=== PATIENT | male | born 1965 | race Two or more races ===

== ENCOUNTER 2016-03-23 12:17 | Emergency (ER) | payer OTHER ==
[2016-03-23 12:38] VITALS: PULSE 82; TEMP 98.1; BMI 31.9
--- NOTE | 2016-03-23 13:23 | PDOC ---
[id number] 4d DIZZY Time Seen by Provider: 03/23/16 12:32 History Source: Patient, Family - History of Present Illness Initial Comments: 03/23/16 13:04 CHIEF COMPLAINT: Dizziness HISTORY OF PRESENT ILLNESS: Patient is a 50-year-old man with a history of hypertension for 8 years. He presents complaining of awakening this morning at 8 am with a sensation of things moving around and feeling dizzy. There is no change with movement or with walking. It is just a vague ongoing sensation of dizziness. He was fine when he went to bed. He awoke at 3 am and also felt fine, but the symptoms were there already upon awakening at 8 am. There is no headache, but his head feels a little heavy. He denies diplopia. He denies change in speech or swallowing. He felt nausea but had no vomiting. Currently , he continues to feel a little bit dizzy. REVIEW OF SYSTEMS: GENERAL/CONSTITUTIONAL: No fever or chills. No weakness. No weight change. HEAD, EYES, EARS, NOSE AND THROAT: No change in vision. No ear pain or discharge. No sore throat. CARDIOVASCULAR: No chest pain or shortness of breath. RESPIRATORY: No cough, wheezing, or hemoptysis. GASTROINTESTINAL: Positive nausea, no vomiting, diarrhea or constipation. No rectal bleeding. GENITOURINARY: No dysuria, frequency, or change in urination. MUSCULOSKELETAL: No joint or muscle swelling or pain. No neck or back pain. SKIN AND BREASTS: No rash or easy bruising. NEUROLOGIC: No headache, but head is feeling a bit heavy, no sarah vertigo, but does feel dizzy, no loss of consciousness, or loss of sensation. PSYCHIATRIC: No depression or anxiety. ENDOCRINE: No increased thirst. No abnormal weight change. HEMATOLOGIC/LYMPHATIC: No anemia, easy bleeding, or history of blood clots. ALLERGIC/IMMUNOLOGIC: No hives or skin allergy. No latex allergy. Past History - Past Medical History Allergies/Adverse Reactions: Allergies Allergy/AdvReac Type Severity Reaction Status Date / Time No Known Allergies Allergy Verified 03/23/16 12:20 Home Medications: Ambulatory Orders Amlodipine Besylate 10 mg PO DAILY 03/23/16 Multivits,Ca,Min/Iron/FA/Lycop [Centrum Men's Tablet] 1 each PO DAILY 03/23/16 HTN: Yes Hypercholesterolemia: Yes - Psycho/Social/Smoking Cessation Hx Anxiety: No Suicidal Ideation: No Smoking History: Never smoked Have you smoked in the past 12 months: No Information on smoking cessation initiated: No Hx Alcohol Use: No Drug/Substance Use Hx: No Substance Use Type: None *Physical Exam - Vital Signs Last Vital Signs Temp Pulse Resp BP Pulse Ox 98.1 F 82 16 137/100 98 03/23/16 12:28 03/23/16 12:28 03/23/16 12:28 03/23/16 12:28 03/23/16 12:28 - Physical Exam Comments: 03/23/16 13:24 GENERAL: [The patient is awake, alert, and fully oriented, in no acute distress. ] HEAD: [Normal with no signs of trauma.] EYES: [Pupils equal, round and reactive to light, extraocular movements intact, sclera anicteric, conjunctiva clear.] ENT: [Ears normal, nares patent, oropharynx clear without exudates. Moist mucous membranes.] NECK: [Normal range of motion, supple without lymphadenopathy, JVD, or masses.] LUNGS: [Breath sounds equal, clear to auscultation bilaterally. No wheezes, and no crackles.] HEART: [Regular rate and rhythm, normal S1 and S2 without murmur, rub or gallop. ] ABDOMEN: [Soft, nontender, normoactive bowel sounds. No guarding, no rebound. No masses.] EXTREMITIES: [Normal range of motion, no edema. No clubbing or cyanosis. No cords, erythema, or tenderness.] NEURO: Mental status: The patient is oriented x3. Cranial nerves: Cranial nerves are intact, no nystagmus, no facial assymmetry. Motor: The upper extremities are 5 over 5 in all muscle groups. The lower extremities are 5 over 5 in all muscle groups. Sensation: Sensation is intact to light touch throughout. Cerebellar: [id number] is normal in both upper extremities. TR nl. Heel -knee-chin is normal in both lower extremities. Reflexes: 2+ and symmetric in the upper and lower extremities. Gait: Normal. Heel and toe walking are normal. Tandem gait is normal. PSYCH: [Normal mood, normal affect.] SKIN: [Warm, Dry, normal turgor, no rashes or lesions noted.] Heart Score/ECG Review - ECG Impressions Comment:: 03/23/16 13:26 Twelve-lead EKG was performed and reviewed by me. There is [normal sinus rhythm ] at a rate of [75] beats per minute. The axis is [normal]. The intervals are normal. There are no abnormal Q waves. There are no abnormal ST elevations or depressions. There are no significant T wave abnormalities. Impression: Normal twelve-lead EKG. ED Treatment Course - LABORATORY CBC & Chemistry Diagram: 03/23/16 13:15 03/23/16 13:15 - RADIOLOGY Radiology Studies Ordered: Category Date Time Status HEAD CT WITHOUT CONTRAST [CT] Stat CT Scan 03/23/16 13:02 Ordered Medical Decision Making - Medical Decision Making 03/23/16 13:27 Patient with a history of hypertension and hyperlipidemia presents with last known normal at 3:30 AM, awakening with dizzy sensation around 8 AM today. He comes in with ongoing sensation of dizziness, feeling a little off balance, but with completely normal detailed neurological examination. There are no associated posterior circulation neurological symptoms. There are no infectious symptoms. There are no other cardiac symptoms. On examination, his blood pressure is moderately elevated. On repeat it remains similarly elevated. Differential diagnosis is broad given the very nonspecific nature of the symptoms. There is no suggestion of stroke by history or examination. Patient will have a head CT scan, laboratory workup, 12-lead EKG has been done and is normal, further plans pending results. *DC/Admit/Observation/Transfer Diagnosis at time of Disposition: Dizziness - Discharge Dispostion Disposition: HOME Condition at time of disposition: Improved - Patient Instructions Printed Discharge Instructions: DI for Dizziness-Nonvertigo Additional Instructions: Please monitor your blood pressure Please take medications as prescribed Please follow up with your primary care physician for possible medication adjustment Return to the ER for any other concerns or complaints
[2016-03-23 13:49] LABS: MEAN PLT VOLUME 7.3 fl (7.5-11.1); RDW 12.3 % (11.9-15.9)
[2016-03-23 13:51] LABS: BASOPHIL 0.5 % (0-2.0); EOSINOPHIL 1.8 % (0-4.5); MCH 30.2 pg (25.7-33.7); MCHC 34.1 g/dl (32.0-35.9); MEAN CELL VOLUME 88.6 fl (80-96); NEUTROPHILS 56.1 % (42.8-82.8); PLATELET COUNT 325 K/MM3 (134-434); WHITE BLOOD COUNT 7.7 K/mm3 (4.0-10.0)
[2016-03-23 14:00] LABS: ALBUMIN 4.4 g/dl (3.5-5.0); ALK PHOS 88 U/L (32-92); ANION GAP 5 (8-16); BILIRUBIN,TOTAL 0.8 mg/dl (0.2-1.0); CALCIUM 9.7 mg/dl (8.4-10.2); CO2 26 mmol/L (22-28); CPK(DFH) 113 IU/L (38-174); GLUCOSE,RANDOM 113 mg/dl (74-106); SGOT/AST 31 U/L (10-42); SGPT/ALT 26 U/L (10-40); TOT PROT 7.3 g/dl (6.4-8.3)
--- NOTE | 2016-03-23 14:43 | PDOC ---
*Physical Exam - Vital Signs Last Vital Signs Temp Pulse Resp BP Pulse Ox 98.1 F 82 16 137/100 98 03/23/16 12:28 03/23/16 12:28 03/23/16 12:28 03/23/16 12:28 03/23/16 12:28 ED Treatment Course - LABORATORY CBC & Chemistry Diagram: 03/23/16 13:15 03/23/16 13:15 - ADDITIONAL ORDERS Additional order review: Laboratory Results 03/23/16 03/23/16 13:15 13:15 Sodium 136 Potassium 4.4 Chloride 105 Carbon Dioxide 26 Anion Gap 5 L BUN 16 Creatinine 1.0 Creat Clearance w eGFR > 60 Random Glucose 113 H Calcium 9.7 Total Bilirubin 0.8 AST 31 ALT 26 Alkaline Phosphatase 88 Creatine Kinase 113 Total Protein 7.3 Albumin 4.4 03/23/16 13:15 RBC 5.36 MCV 88.6 MCHC 34.1 RDW 12.3 MPV 7.3 L Neutrophils % 56.1 Lymphocytes % 32.2 Monocytes % 9.4 Eosinophils % 1.8 Basophils % 0.5 Medical Decision Making - Medical Decision Making 03/23/16 14:40 This is a 50 yo M presenting to the ER with a complaint of dizziness which he noted upon awakening this morning No chest pain Nml neuro examination No recent fevers or chills No h/o anemia No vertigo Labs pending CT pending 03/23/16 14:42 CT negative Troponin pending Pt requesting to be discharged Pt asked to stay just until troponin is resulted 03/23/16 14:54 Laboratory Tests 03/23/16 13:15 Creatine Kinase 113 Troponin I < 0.03 L Will discharge to home Follow up with PMD Return to the ER for any other concerns or complaints *DC/Admit/Observation/Transfer Diagnosis at time of Disposition: Dizziness - Discharge Dispostion Disposition: HOME Condition at time of disposition: Improved Admit: No - Patient Instructions Printed Discharge Instructions: DI for Dizziness-Nonvertigo Additional Instructions: Please monitor your blood pressure Please take medications as prescribed Please follow up with your primary care physician for possible medication adjustment Return to the ER for any other concerns or complaints
[2016-03-23 14:52] LABS: TROPONIN I (DFP) < 0.03 ng/ml (0.03-0.50)
[2016-03-23 15:14] VITALS: BP 140/96
--- NOTE | 2016-03-25 11:29 | EKG ---
Test Reason : Blood Pressure : / mmHG Vent. Rate : 075 BPM Atrial Rate : 075 BPM P-R Int : 172 ms QRS Dur : 084 ms QT Int : 372 ms P-R-T Axes : 033 050 003 degrees QTc Int : 415 ms NORMAL SINUS RHYTHM NORMAL ECG NO PREVIOUS ECGS AVAILABLE Confirmed by GARRETT CAMP MD ([id number]) on 03/25/2016 11:29:21 AM Referred By: JONA Confirmed By:GARRETT CAMP MD
== END 2016-03-23 15:16 | disposition home or self-care (01) ==
LOC: FER 12:17
DX: R42 Dizziness and giddiness (principal); I10 Essential (primary) hypertension; E78.00 Pure hypercholesterolemia, unspecified
CPT/HCPCS: 36415; 70450-TC; 80053; 82550; 84484; 85025; 93005; 99282-25

== ENCOUNTER 2021-11-08 04:31 | Day surgery (SDC) | payer OTHER ==
[2021-11-06 08:12] VITALS: BMI 32.3
[2021-11-08 09:21] VITALS: TEMP 97.3
[2021-11-08 09:54] VITALS: BP 122/73; PULSE 66; RESP 14
== END 2021-11-08 10:15 | disposition home or self-care (01) ==
LOC: JASU-ENDO 04:31
PROVIDERS: ATTEND Internal Medicine Gastroenterology
PROC: 0DBP8ZX Excision of Rectum, Via Natural or Artificial Opening Endoscopic, Diagnostic (ICD-10-PCS; principal; 2021-11-08 09:00)
DX: Z12.11 Encounter for screening for malignant neoplasm of colon (principal); D12.8 Benign neoplasm of rectum; I10 Essential (primary) hypertension
CPT/HCPCS: 88305-TC

== ENCOUNTER 2022-06-13 17:40 | Emergency (ER) | payer OTHER ==
[2022-06-13] MEDS ORDERED: FAMOTIDINE 20 MG/50 ML IVPB 20 MG/50 ML MG IVPB ONE ×2 (18:13→18:40)
[2022-06-13] MEDS ORDERED: MAG HYDROX/AL HYDROX/SIMETH 30 ML UNIT-DOSE CUP PO ONE (18:13)
[2022-06-13] MEDS ORDERED: ACETAMINOPHEN 1000 MG/100 ML BAG IVPB ONE (18:13)
[2022-06-13 18:17] VITALS: BMI 38.0
[2022-06-13] MEDS ORDERED: ACETAMINOPHEN INJECTION 100 ML IVPB ONE (18:40)
[2022-06-13] MEDS ORDERED: MAG HYDROX/AL HYDROX/SIMETH 30 ML UNIT-DOSE CUP ONE (18:40)
[2022-06-13] MEDS ORDERED: SODIUM CHLORIDE 0.9% 1000 ML INFUS.BAG IV ONE ×2 (18:58→20:02)
[2022-06-13 19:26] LABS: INR 0.93 (0.83-1.09); PROTHROMBIN TIME (PATIENT) 10.7 SEC (9.7-13.0)
[2022-06-13 19:29] LABS: ACTIVATED PTT 33.5 SECONDS (25.2-36.5)
[2022-06-13 19:34] LABS: ALBUMIN 4.6 g/dl (3.4-5.0); BILIRUBIN,TOTAL 0.7 mg/dl (0.2-1); CALCIUM 9.5 mg/dl (8.5-10); CREATININE 1.4 mg/dl (0.55-1.3)
[2022-06-13] MEDS ORDERED: morphine CARPU-JECT 4 MG/1 ML DISP.SYRIN IVPUSH ONE (20:02)
[2022-06-13] MEDS ORDERED: morphine SULFATE 4 MG/ML VIAL ONE (20:05)
[2022-06-13 21:13] LABS: HEMATOCRIT 45.6 % (35.4-49); HEMOGLOBIN 15.4 GM/dL (11.7-16.9); MCH 30.2 pg (25.7-33.7); MCHC 33.8 g/dl (32.0-35.9); MEAN CELL VOLUME 89.3 fl (80-96); MEAN PLT VOLUME 7.7 fl (7.5-11.1); PLATELET COUNT 341 10^3/uL (134-434); RDW 13.6 % (11.9-15.9); WHITE BLOOD COUNT 13.1 K/mm3 (4.0-10.0)
[2022-06-13 21:52] LABS: ANISOCYTOSIS 1+; MACROCYTOSIS 0
[2022-06-13] MEDS ORDERED: KETOROLAC TROMETHAMINE 15 MG/ML VIAL IVPUSH ONE (21:57)
[2022-06-13] MEDS ORDERED: KETOROLAC TROMETHAMINE 15 MG/ML VIAL ONE (21:58)
[2022-06-13] MEDS ORDERED: TAMSULOSIN HCL 0.4 MG CAP PO ONE (22:15)
[2022-06-13] MEDS ORDERED: TAMSULOSIN HCL 0.4 MG CAP ONE (22:20)
[2022-06-13] MEDS ORDERED: CEPHALEXIN MONOHYDRATE 500 MG CAPSULE (UD) PO ONE (22:22)
[2022-06-13] MEDS ORDERED: CEPHALEXIN MONOHYDRATE 500 MG CAPSULE (UD) ONE (22:22)
[2022-06-13 22:54] VITALS: BP 143/103; PULSE 88; RESP 18; TEMP 98.1
== END 2022-06-13 22:54 | disposition home or self-care (01) ==
LOC: FER 17:40
PROC: 3E033GC Introduction of Other Therapeutic Substance into Peripheral Vein, Percutaneous Approach (ICD-10-PCS; principal; 2022-06-13)
PROC: 3E033GC Introduction of Other Therapeutic Substance into Peripheral Vein, Percutaneous Approach (ICD-10-PCS; 2022-06-13)
PROC: 3E033GC Introduction of Other Therapeutic Substance into Peripheral Vein, Percutaneous Approach (ICD-10-PCS; 2022-06-13)
PROC: 3E033GC Introduction of Other Therapeutic Substance into Peripheral Vein, Percutaneous Approach (ICD-10-PCS; 2022-06-13)
DX: N23 Unspecified renal colic (principal); R14.0 Abdominal distension (gaseous); Z20.822 Contact with and (suspected) exposure to COVID-19
CPT/HCPCS: 0241U-QW; 36415; 74177-TC; 80053; 81003; 81015; 85027; 85610; 85730; 86850; 86900; 86901; 87077; 87086; 99285-25; Q9967